=== PATIENT | female | born 1940 | race Caucasian/White ===

== ENCOUNTER 2016-05-10 12:40 | Emergency (ER) | payer OTHER ==
[~2016-05-10] VITALS: Ht 160 cm; Wt 108.9 kg
[~2016-05-10 12:40] MED LIST: AMLODIPINE BESYL5 M1 PO; ATENOLOL25 MG PO; BACO TOP; CALCITRIOL0.5 MCG PO; CLINDAMYCIN300 M1 PO; COZAAR100 MG PO; FOLIC ACID1 MG PO; HIBICLENS118 ML TOP; HYDROCHLOROTHIA25 MG PO; IPRATROPIUM BROM3 M2 HHN; LAC PO; LEVAQUIN750 MG PO; LOVASTATIN40 MG PO; METHOTREXATE2.5 M2 PO; OXYCODONE HYDRO10 M1 PO; PREDNISONE20 MG PO
[2016-05-10 13:35] LABS: BASOPHIL % 0.3 % (0-2); PLATELET COUNT 175 x10^3mcL (130-400)
[2016-05-10 13:36] LABS: RED CELL DISTRIBUTION WIDTH 15.7 % (11.5-14.5)
[2016-05-10 13:43] LABS: CALCIUM 8.7 mg/dL (8.5-10.1); CARBON DIOXIDE 28.2 mmol/L (21-32); CHLORIDE SERUM 105 mmol/L (98-107); CREATININE SERUM 0.7 mg/dL (0.6-1.0); GLUCOSE SERUM 167 mg/dL (74-106); POTASSIUM SERUM 4.1 mmol/L (3.5-5.1); SODIUM SERUM 142 mmol/L (136-145)
[2016-05-10 13:48] LABS: ALBUMIN 3.5 g/dL (3.4-5.0); ALKALINE PHOSPHATASE 76 U/L (46-116); ALT/SGPT 22 U/L (14-59); AST/SGOT 17 U/L (15-37); BILIRUBIN TOTAL 0.81 mg/dL (0.20-1.00); TOTAL PROTEIN, SERUM 7.7 g/dL (6.4-8.2)
[2016-05-10 14:45] VITALS: BP 152/86
== END 2016-05-10 15:06 | disposition home or self-care (01) ==
LOC: ED 12:40
PROVIDERS: Emergency Medicine
DX: S46.011A Strain of muscle(s) and tendon(s) of the rotator cuff of right shoulder, initial encounter (principal); M06.9 Rheumatoid arthritis, unspecified; Z88.0 Allergy status to penicillin; W17.89XA Other fall from one level to another, initial encounter; Y93.89 Activity, other specified; Y99.8 Other external cause status; Y92.89 Other specified places as the place of occurrence of the external cause
CPT/HCPCS: J3010; Q0092

== ENCOUNTER 2016-05-22 08:26 | Emergency (ER) | payer OTHER, BC ==
[2016-05-22 10:36] VITALS: BP 148/91
== END 2016-05-22 10:36 | disposition home or self-care (01) ==
LOC: ED 08:26
DX: F41.9 Anxiety disorder, unspecified (principal); I10 Essential (primary) hypertension
CPT/HCPCS: J2060

== ENCOUNTER 2018-01-02 12:19 | Emergency (ER) | payer OTHER ==
[~2018-01-02] VITALS: Ht 160 cm; Wt 103.0 kg
[2018-01-02 12:38] VITALS: Ht 160 cm; Wt 103.0 kg
[2018-01-02 14:42] LABS: BASOPHIL % 0.5 % (0-2); PLATELET COUNT 222 x10^3mcL (130-400)
[2018-01-02 14:44] LABS: RED CELL DISTRIBUTION WIDTH 14.9 % (11.5-14.5)
[2018-01-02 17:08] VITALS: BP 149/73
== END 2018-01-02 17:08 | disposition home or self-care (01) ==
LOC: ED 12:19
PROVIDERS: Emergency Medicine
DX: N39.0 Urinary tract infection, site not specified (principal); I10 Essential (primary) hypertension; I48.91 Unspecified atrial fibrillation; M06.9 Rheumatoid arthritis, unspecified; Z90.710 Acquired absence of both cervix and uterus; Z90.89 Acquired absence of other organs
CPT/HCPCS: J0713